=== PATIENT | female | born 1975 | race Caucasian/White ===

== ENCOUNTER 2016-10-29 12:51 | Emergency (ER) | payer MEDICAID, OTHER ==
[~2016-10-29] VITALS: Ht 167.6 cm; Wt 75.0 kg
[2016-10-29 16:09] VITALS: BP 120/84
== END 2016-10-29 16:20 | disposition home or self-care (01) ==
LOC: ER 13:40
DX: S70.312A Abrasion, left thigh, initial encounter (principal); M79.632 Pain in left forearm; W17.1XXA Fall into storm drain or manhole, initial encounter; Y93.89 Activity, other specified; Y92.480 Sidewalk as the place of occurrence of the external cause
CPT/HCPCS: 73552; 99284